=== PATIENT | male | born 1995 | race African-American/Black ===

== ENCOUNTER 2017-01-22 00:49 | Emergency (ER) | payer OTHER ==
[2017-01-22 01:08] VITALS: BP 120/74; PULSE 69; TEMP 98.7; BMI 33.2
[2017-01-22] MEDS ORDERED: KETOROLAC TROMETHAMINE 60 MG/2 ML VIAL IM ONE (01:16)
[2017-01-22] MEDS ORDERED: predniSONE 20 MG TABLET (UD) PO ONE (01:17)
[2017-01-22] MEDS ORDERED: KETOROLAC TROMETHAMINE 60 MG/2 ML VIAL ONE (01:17)
[2017-01-22] MEDS ORDERED: predniSONE 20 MG TABLET (UD) ONE (01:17)
--- NOTE | 2017-01-22 01:19 | PDOC ---
History of Present Illness - General Chief Complaint: Pain, Acute Stated Complaint: SORE THROAT X ONE WEEK Time Seen by Provider: 01/22/17 01:11 History Source: Patient Exam Limitations: No Limitations - History of Present Illness Initial Comments: 01/22/17 01:17 This is a 22-year-old male who comes in complaining of sore throat 1 day. Patient denies any fevers or chills. Patient denies any cough congestion or any other symptoms. Patient is otherwise healthy. PAST MEDICAL HISTORY: no significant history PAST SURGICAL HISTORY: no significant history FAMILY HISTORY: no pertinant history SOCIAL HISTORY: Pt lives with family and is employed. MEDICATIONS: reviewed ALLERGIES: As per nursing notes Review of Systems General: No fevers or chills, no weakness, no weight loss HEENT: No change in vision. +sore throat,. No ear pain CardioVascular: No chest pain or shortness of breath Respiratory:No cough, or wheezing. Gastrointestinal: no nausea, vomitting, diarrhea or constipation, No rectal bleeding Genitourinary: No dysuria, hematuria, or frequency Musculoskeletal: No joint or muscle pain or swelling Neurologic: No headache, vertigo, dizziness or loss of consciousness Psychiatric: nor depression Skin: No rashes or easy bruising Endocrine: no increased thirst or abnormal weight change Allergic: no skin or latex allergy All other systems reviewed and normal GENERAL: The patient is awake, alert, and fully oriented, in no acute distress. HEAD: Normal with no signs of trauma. THROAT: There is some erythema of the tonsils bilateral, there is no exudate, there is no submandibular lymphadenopathy. EYES: Pupils equal, round and reactive to light, extraocular movements intact, sclera anicteric, conjunctiva clear. EXTREMITIES: Normal range of motion, no edema. NEUROLOGICAL: Normal speech, normal gait. PSYCH: Normal mood, normal affect. SKIN: Warm, Dry, normal turgor, no rashes or lesions noted. Assessment and plan: This is a 22-year-old male who comes in with a viral pharyngitis. Patient given a one-time dose of prednisone and a shot of Toradol for the pain. Patient discharged will follow-up with his primary care doctor as needed Past History - Past Medical History Allergies/Adverse Reactions: Allergies Allergy/AdvReac Type Severity Reaction Status Date / Time No Known Allergies Allergy Verified 01/22/17 01:02 Home Medications: Ambulatory Orders NK [No Known Home Medication] 07/27/16 Other medical history: DENIES - Immunization History Td Vaccination: No TDAP Vaccination: No Immunization Up to Date: No - Psycho/Social/Smoking Cessation Hx Anxiety: Yes Suicidal Ideation: No Smoking History: Never smoked Have you smoked in the past 12 months: No Information on smoking cessation initiated: No Hx Alcohol Use: Yes (SOCIAL) Drug/Substance Use Hx: No Substance Use Type: Alcohol *Physical Exam - Vital Signs Last Vital Signs Temp Pulse Resp BP Pulse Ox 98.7 F 69 16 120/74 98 01/22/17 01:04 01/22/17 01:04 01/22/17 01:04 01/22/17 01:04 01/22/17 01:04 *DC/Admit/Observation/Transfer Diagnosis at time of Disposition: Acute viral pharyngitis - Discharge Dispostion Disposition: HOME Condition at time of disposition: Stable Admit: No - Patient Instructions Printed Discharge Instructions: Viral Pharyngitis Additional Instructions: Tylenol or Motrin as needed for pain, in addition you can purchase some over- the-counter sore throat remedies such as Chloraseptic spray and use as directed on the bottle. Return to the emergency department immediately with ANY new, persistent or worsening symptoms. Continue any medications as previously prescribed by your physician. You should follow up with your primary doctor as soon as possible regarding today's emergency department visit. . Please make sure your doctor reviews the results of your emergency evaluation. Thank you for coming to the Emergency Department today for your care. It was a pleasure to see you today. Please note that your evaluation is INCOMPLETE until you follow-up with your doctor.
== END 2017-01-22 01:24 | disposition home or self-care (01) ==
LOC: FER 00:49
PROC: 3E0233Z Introduction of Anti-inflammatory into Muscle, Percutaneous Approach (ICD-10-PCS; principal; 2017-01-22)
DX: J02.8 Acute pharyngitis due to other specified organisms (principal); B97.89 Other viral agents as the cause of diseases classified elsewhere
CPT/HCPCS: 99281-25

== ENCOUNTER 2017-02-20 01:27 | Emergency (ER) | payer OTHER ==
[2017-02-20 01:34] VITALS: BP 126/76; PULSE 67; TEMP 97.8; BMI 33.4
[2017-02-20] MEDS ORDERED: KETOROLAC TROMETHAMINE 60 MG/2 ML VIAL IM ONE (01:44)
--- NOTE | 2017-02-20 01:44 | PDOC ---
History of Present Illness - General Chief Complaint: Chest Pain Stated Complaint: CHEST PAIN Time Seen by Provider: 02/20/17 01:39 History Source: Patient Exam Limitations: No Limitations - History of Present Illness Initial Comments: 02/20/17 01:42 This is a 22-year-old male who comes in complaining of pain. Pain is worse when he takes a breath coughs or moves. Patient has had history of similar pain in the past which she is had workup and was told it was skeletal muscle. Patient did take some Motrin prior to coming in but says it didn't help. Patient is otherwise healthy. He denies any alcohol or illegal drug use. He denies history of smoking. He denies any other cardiac risk factors. PAST MEDICAL HISTORY: no significant history PAST SURGICAL HISTORY: no significant history FAMILY HISTORY: no pertinant history SOCIAL HISTORY: Pt lives with family and is employed. MEDICATIONS: reviewed ALLERGIES: As per nursing notes Review of Systems General: No fevers or chills, no weakness, no weight loss HEENT: No change in vision. No sore throat,. No ear pain CardioVascular: + chest pain or shortness of breath Respiratory:No cough, or wheezing. Gastrointestinal: no nausea, vomitting, diarrhea or constipation, No rectal bleeding Genitourinary: No dysuria, hematuria, or frequency Musculoskeletal: No joint or muscle pain or swelling Neurologic: No headache, vertigo, dizziness or loss of consciousness Psychiatric: nor depression Skin: No rashes or easy bruising Endocrine: no increased thirst or abnormal weight change Allergic: no skin or latex allergy All other systems reviewed and normal Exam: General: Well-nourished well-developed individual, no acute distress HEENT: Throat: Normal, tonsils normal, no erythema or exudate Neck: Supple, no meningeal signs, no lymphadenopathy Eyes::Pupils equal reactive and round, extraocular motion intact Chest: Pain reproduced on palpation Cardiac: S1-S2 normal, regular rate and rhythm, no murmurs rubs or gallops Respiratory: Lungs clear to auscultation bilateral Abdomen: Soft, nondistended, normal bowel sounds, nontender to palpation diffusely Extremities: Warm, dry, no cyanosis, clubbing, or edema Skin: No rashes Neuro: Alert and oriented x3, nonfocal exam, grossly intact, normal gait Psych: Normal mood and affect Assessment and plan: This is a 22-year-old male who comes in complaining of anterior chest wall pain. Patient given Toradol and discharged will follow-up with his primary care doctor Past History - Past Medical History Allergies/Adverse Reactions: Allergies Allergy/AdvReac Type Severity Reaction Status Date / Time No Known Allergies Allergy Verified 01/22/17 01:02 Home Medications: Ambulatory Orders NK [No Known Home Medication] 07/27/16 - Immunization History Td Vaccination: No TDAP Vaccination: No Immunization Up to Date: No - Psycho/Social/Smoking Cessation Hx Anxiety: Yes Suicidal Ideation: No Smoking History: Never smoked Have you smoked in the past 12 months: No Number of Cigarettes Smoked Daily: 0 Information on smoking cessation initiated: No Hx Alcohol Use: No Drug/Substance Use Hx: No Substance Use Type: Alcohol *Physical Exam - Vital Signs Last Vital Signs Temp Pulse Resp BP Pulse Ox 97.8 F 67 14 126/76 98 02/20/17 01:29 02/20/17 01:35 02/20/17 01:29 02/20/17 01:29 02/20/17 01:35 *DC/Admit/Observation/Transfer Diagnosis at time of Disposition: Chest wall pain - Discharge Dispostion Disposition: HOME Condition at time of disposition: Good Admit: No - Patient Instructions Additional Instructions: For the pain take ibuprofen or Naprosyn as directed on the bottle. Return to the emergency department immediately with ANY new, persistent or worsening symptoms. Continue any medications as previously prescribed by your physician. You should follow up with your primary doctor as soon as possible regarding today's emergency department visit. . Please make sure your doctor reviews the results of your emergency evaluation. Thank you for coming to the Emergency Department today for your care. It was a pleasure to see you today. Please note that your evaluation is INCOMPLETE until you follow-up with your doctor.
[2017-02-20] MEDS ORDERED: KETOROLAC TROMETHAMINE 60 MG/2 ML VIAL ONE (01:46)
== END 2017-02-20 01:58 | disposition home or self-care (01) ==
LOC: FER 01:27
PROC: 3E0233Z Introduction of Anti-inflammatory into Muscle, Percutaneous Approach (ICD-10-PCS; principal; 2017-02-20)
DX: R07.89 Other chest pain (principal)
CPT/HCPCS: 99283-25

== ENCOUNTER 2018-06-26 06:36 | Emergency (ER) | payer OTHER ==
[2018-06-26 06:44] VITALS: BP 120/81; PULSE 80; TEMP 98.4; BMI 31.4
[2018-06-26] MEDS ORDERED: ACETAMINOPHEN 500 MG TABLET (FP) PO ONE (06:45)
[2018-06-26] MEDS ORDERED: ACETAMINOPHEN 500 MG TABLET (FP) ONE (06:46)
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
== END 2018-06-26 08:50 | disposition home or self-care (01) ==
LOC: FER 06:36
DX: S60.222A Contusion of left hand, initial encounter (principal); V43.62XA Car passenger injured in collision with other type car in traffic accident, initial encounter; Y93.89 Activity, other specified; Y92.410 Unspecified street and highway as the place of occurrence of the external cause
CPT/HCPCS: 73110-TC-LR-FY; 73130-TC-LR-FY; 99282-25

== ENCOUNTER 2021-07-25 15:16 | Emergency (ER) | payer OTHER ==
[2021-07-25 15:24] VITALS: BP 149/93; PULSE 81; TEMP 99.2; BMI 34.0
== END 2021-07-25 16:36 | disposition home or self-care (01) ==
LOC: FER 15:16
PROC: 0HQFXZZ Repair Right Hand Skin, External Approach (ICD-10-PCS; principal; 2021-07-25)
DX: S61.316A Laceration without foreign body of right little finger with damage to nail, initial encounter (principal); W22.8XXA Striking against or struck by other objects, initial encounter; Y92.9 Unspecified place or not applicable
CPT/HCPCS: 12001-25; 73130-TC-RT-FY; 99284-25

== ENCOUNTER 2021-08-02 21:07 | Emergency (ER) | payer OTHER ==
[2021-08-02 21:12] VITALS: BP 122/64; PULSE 78; TEMP 98.7; BMI 33.3
== END 2021-08-02 21:20 | disposition home or self-care (01) ==
LOC: FER 21:07
DX: Z48.02 Encounter for removal of sutures (principal)
CPT/HCPCS: 99281-25

== ENCOUNTER 2022-10-02 23:50 | Emergency (ER) | payer OTHER ==
[2022-10-02 23:59] VITALS: BP 139/87; PULSE 80; RESP 18; TEMP 98; BMI 34.0
== END 2022-10-03 00:19 | disposition home or self-care (01) ==
LOC: FER 23:50
DX: R59.9 Enlarged lymph nodes, unspecified (principal)
CPT/HCPCS: 99282-25

== ENCOUNTER 2024-08-08 20:44 | Emergency (ER) | payer OTHER ==
[2024-08-08 20:48] VITALS: BP 122/83; PULSE 77; RESP 18; TEMP 98.6; BMI 35.4
[2024-08-08] MEDS ORDERED: DEXAMETHASONE 4 MG TABLET (FP) ONE (22:28)
[2024-08-08] MEDS ORDERED: ALBUTEROL SO4 2.5/IPRATROPIUM 0.5 INH SOL 3 ML VIAL.NEB. NEB ONE (22:28)
[2024-08-08] MEDS: DEXAMETHASONE 4 MG TABLET (FP) PO ONE (22:35)
[2024-08-08] MEDS: ALBUTEROL SO4 2.5/IPRATROPIUM 0.5 INH SOL 3 ML VIAL.NEB. NEB ONE (22:35)
== END 2024-08-08 23:18 | disposition home or self-care (01) ==
LOC: FER 20:44
PROC: 3E0F7GC Introduction of Other Therapeutic Substance into Respiratory Tract, Via Natural or Artificial Opening (ICD-10-PCS; principal; 2024-08-08)
DX: J45.909 Unspecified asthma, uncomplicated (principal); R07.89 Other chest pain; Z20.822 Contact with and (suspected) exposure to COVID-19
CPT/HCPCS: 0241U-QW; 71046-TC-FY; 93005; 99285-25